=== PATIENT | female | born 1965 | race Caucasian/White ===

== ENCOUNTER → 2018-09-02 | Outpatient (CLI) | payer OTHER, MEDICAID ==
[~2018-09-02] MED LIST: ACETAMINOPHEN-1 EAC1 PO; FLEXERIL PO; IBUPROFEN 800800 M1 PO; LISINOPRIL20 MG PO; MOBIC7.5 MG PO; VENLAFAXINE H37.5 M2 PO; ZANTAC 150MG T150 MG PO
== END ==
LOC: M.MRI 08-24 13:30
DX: M50.33 Other cervical disc degeneration, cervicothoracic region (principal); M48.02 Spinal stenosis, cervical region; M43.12 Spondylolisthesis, cervical region; M12.88 Other specific arthropathies, not elsewhere classified, other specified site; M40.292 Other kyphosis, cervical region; M43.22 Fusion of spine, cervical region; R27.0 Ataxia, unspecified

== ENCOUNTER → 2019-04-19 | Outpatient (CLI) | payer OTHER, MEDICAID | LOC: M.RAD 10:35 | DX: Z12.31 Encounter for screening mammogram for malignant neoplasm of breast (principal) ==

== ENCOUNTER 2019-06-30 15:32 | Emergency (ER) | payer OTHER, MEDICAID ==
[~2019-06-30] VITALS: Ht 167.6 cm; Wt 57.1 kg
[2019-06-30] MEDS ORDERED: TIZANIDINE HCL2 M1 PO (15:38)
[2019-06-30] MEDS ORDERED: LIDODERM1 EACH TOP (17:20)
[2019-06-30 17:30] VITALS: BP 125/72
== END 2019-06-30 17:32 | disposition home or self-care (01) ==
LOC: M.ERS 15:32
DX: M54.5 Low back pain (principal); M54.2 Cervicalgia; F17.210 Nicotine dependence, cigarettes, uncomplicated; Z90.710 Acquired absence of both cervix and uterus; Z88.5 Allergy status to narcotic agent; Z91.040 Latex allergy status; V89.2XXA Person injured in unspecified motor-vehicle accident, traffic, initial encounter; Y93.89 Activity, other specified; Y92.89 Other specified places as the place of occurrence of the external cause; Y99.8 Other external cause status

== ENCOUNTER → 2020-05-31 | Outpatient (CLI) | payer OTHER, MEDICAID ==
[~2020-05-31] MED LIST changes: +LIDODERM1 EACH TOP; +TIZANIDINE HCL2 M1 PO
== END ==
LOC: M.RAD 10:29
PROVIDERS: ATTEND Internal Medicine
DX: Z12.31 Encounter for screening mammogram for malignant neoplasm of breast (principal)